=== PATIENT | male | born 1990 | race Caucasian/White ===

== ENCOUNTER 2016-06-05 15:17 | Emergency (ER) | payer OTHER ==
[~2016-06-05] VITALS: Ht 172.7 cm; Wt 64.9 kg
[2016-06-05 15:57] VITALS: BP 131/74
--- NOTE | 2016-06-05 16:00 | Emergency Room Report ---
History of Present Illness General Chief Complaint: Medication Refill Source: Patient Present Illness HPI 26-year-old male presents emergency department requesting refill of his medications. Patient states that [place] from [place] and is considering seeing here longer than he anticipated originally. 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 States he has had these conditions since childhood and takes medications daily. The note from his primary doctor indicates dosages of the medications and how often he takes them. Patient denies symptoms at this time denies MS, denies confusion denies abdominal pain denies extremity edema. he states that he wants to stay in the [place] for several more months and will need primary care doctor. Denies CP, Palpitations, LOC, AMS, dizziness, Changes in Vision, Sensation, paresthesias, or a sudden severe headache. Allergies: Coded Allergies: No Known Allergies (Unverified , 06/05/16) Patient History Past Medical History: see triage record Past Surgical History: none Pertinent Family History: none Reviewed Nursing Documentation: PMH: Agreed, PSxH: Agreed Nursing Documentation-PMH Hx Cardiac Problems: No Hx Hypertension: Yes Review of Systems All Other Systems: negative except mentioned in HPI Physical Exam Vital Signs Date Time Temp Pulse Resp B/P Pulse Ox O2 Delivery O2 Flow Rate FiO2 06/05/16 15:31 98.1 83 14 131/74 98 Room Air Sp02 EP Interpretation: reviewed, normal General Appearance: no apparent distress, alert, GCS 15, non-toxic Head: normocephalic, atraumatic Eyes: bilateral eye PERRL, bilateral eye normal inspection ENT: hearing grossly normal, normal pharynx, no angioedema, normal voice Neck: full range of motion, supple/symm/no masses Respiratory: chest non-tender, lungs clear, normal breath sounds, speaking full sentences Cardiovascular #1: regular rate, rhythm, no edema Gastrointestinal: non tender, soft, no guarding, no rebound Rectal: deferred Genitourinary: normal inspection, no CVA tenderness Musculoskeletal: back normal, gait/station normal, normal range of motion, non- tender Neurologic: alert, oriented x3, responsive, motor strength/tone normal, sensory intact, speech normal Psychiatric: judgement/insight normal, memory normal, mood/affect normal, no suicidal/homicidal ideation Skin: normal color, no rash, warm/dry, well hydrated Lymphatic: no adenopathy Medical Decision Making PA Attestation Dr. Pathak is my supervising Physician whom patient management has been discussed with. 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 presents to the ED c/o running out of his medications. Patient presents with medical records showing history of minimal change disease since 1992, Glomerulosclerosis since 2000, and nephrotic syndrome which is corticosteroid dependent since infancy. he denies symptoms at this time. Ddx considered but are not limited to: drug seeking, OD, renal failure, chronic renal disease. Vital signs: are WNL, pt. is afebrile H&PE are most consistent with need for medication refill. ORDERS: none required at this time, the diagnosis is clinical ED INTERVENTIONS: None required at this time. Pt. given refills for: Mycophenolate mofetil 1 gm PO q12 hrs Prednisolone 5mf PO QD Perindopril (Coversyl) 10mg PO QD Simvistatin 10mg PO QD One Alpha ( Alfacalcidol) 0.25mcg PO QD Ranitidine 150mg PO QD Patient is provided with referral for senior publications specialist. DISCHARGE: At this time pt. is stable for d/c to home. Will provide printed patient care instructions, and any necessary prescriptions. Care plan and follow up instructions have been discussed with the patient prior to discharge. Last Vital Signs Date Time Temp Pulse Resp B/P Pulse Ox O2 Delivery O2 Flow Rate FiO2 06/05/16 15:31 98.1 83 14 131/74 98 Room Air Disposition: HOME, SELF-CARE Condition: Stable Scripts Calcitriol (Calcitriol) 0.25 Mcg Capsule 0.25 MCG ORAL DAILY for 30 Days, #30 CAP Prov: Varsha White P.A. 06/05/16 Ranitidine Hcl* (ZANTAC*) 150 Mg Tablet 150 MG ORAL DAILY for 30 Days, #30 TAB Prov: Varsha White P.A. 06/05/16 Simvastatin (ZOCOR) 10 Mg Tablet 10 MG ORAL BEDTIME for 30 Days, #30 TAB Prov: Varsha White P.A. 06/05/16 Perindopril Erbumine (ACEON) 8 Mg Tablet 8 MG ORAL DAILY for 30 Days, #30 TAB Prov: Varsha White P.A. 06/05/16 Prednisolone (MILLIPRED) 5 Mg Tablet 5 MG PO DAILY for 30 Days, #30 TAB Prov: Varsha White 06/05/16 Mycophenolate Mofetil (CELLCEPT) 500 Mg Tablet 1000 MG ORAL EVERY 12 HOURS for 30 Days, #60 TAB Prov: Varsha White 06/05/16 Patient Instructions: Medicine Refill at the Emergency Department Additional Instructions: Take medications as directed. Follow up with PCP in 3-5 days Return sooner to ED if new symptoms occur, or current symptoms become worse. - Please note that this Emergency Department Report was dictated using [employer] technology software, occasionally this can lead to erroneous entry secondary to interpretation by the dictation equipment. Varsha White Jun 05, 2016 16:00
[2016-06-05] MEDS ORDERED: ACEON8 MG ORAL (16:17)
[2016-06-05] MEDS ORDERED: CELLCEPT500 MG ORAL (16:17)
[2016-06-05] MEDS ORDERED: ROCALTROL0.5 MCG ORAL (16:17)
[2016-06-05] MEDS ORDERED: SIMVASTATIN10 MG ORAL (16:17)
[2016-06-05] MEDS ORDERED: RANITIDINE HCL150 MG ORAL (16:17)
[2016-06-05] MEDS ORDERED: MILLIPRED5 MG PO (16:17)
[2016-06-05 16:31] VITALS: BP 131/74
== END 2016-06-05 16:31 | disposition home or self-care (01) ==
LOC: EMR 15:45
DX: N26.9 Renal sclerosis, unspecified (principal); Z76.0 Encounter for issue of repeat prescription; I10 Essential (primary) hypertension
CPT/HCPCS: 99284

== ENCOUNTER 2016-11-18 16:28 | Emergency (ER) | payer SELFPAY ==
[~2016-11-18] VITALS: Ht 167.6 cm; Wt 61.7 kg
[~2016-11-18 16:28] MED LIST: ACEON8 MG ORAL; CELLCEPT500 MG ORAL; MILLIPRED5 MG PO; RANITIDINE HCL150 MG ORAL; ROCALTROL0.5 MCG ORAL; SIMVASTATIN10 MG ORAL
[2016-11-18 16:37] VITALS: BP 123/79
[2016-11-18] MEDS ORDERED: CELLCEPT250 MG ORAL (16:43)
[2016-11-18] MEDS ORDERED: PERINDOPRIL ERBU8 MG PO (16:43)
[2016-11-18] MEDS ORDERED: MILLIPRED5 MG PO (17:09)
[2016-11-18 17:17] VITALS: BP 123/79
--- NOTE | 2016-11-19 00:10 | Emergency Room Report ---
History of Present Illness General Chief Complaint: General Complaint Source: Patient Present Illness HPI The patient is a 26-year-old male from [facility] presenting for medication refill. There is a slight language barrier. Patient states he has chronic kidney condition for which she takes daily prednisone. He has shown prescription which is for 5 mg daily. He states he ran out 3 days prior and has been unable to obtain primary doctor here. He denies any pain at this time. He denies other symptoms including nausea, vomiting, fever, chills, back pain, abdominal pain, dysuria, hematuria Allergies: Coded Allergies: No Known Allergies (Unverified , 06/05/16) Patient History Past Medical History: see triage record Pertinent Family History: none Reviewed Nursing Documentation: PMH: Agreed, PSxH: Agreed Nursing Documentation-PMH Past Medical History: No Stated History Hx Cardiac Problems: No Hx Hypertension: Yes Review of Systems All Other Systems: negative except mentioned in HPI Physical Exam Vital Signs Date Time Temp Pulse Resp B/P (MAP) Pulse Ox O2 Delivery O2 Flow Rate FiO2 11/18/16 16:37 98.2 70 17 123/79 99 Room Air Sp02 EP Interpretation: reviewed, normal General Appearance: no apparent distress, alert, GCS 15, non-toxic Head: normocephalic, atraumatic Eyes: bilateral eye normal inspection, bilateral eye PERRL ENT: hearing grossly normal, normal pharynx, no angioedema, normal voice Respiratory: chest non-tender, lungs clear, normal breath sounds, speaking full sentences Cardiovascular #1: regular rate, rhythm, no edema Gastrointestinal: normal bowel sounds, non tender, soft, non-distended, no guarding, no rebound Rectal: deferred Genitourinary: normal inspection, no CVA tenderness Musculoskeletal: back normal, gait/station normal, normal range of motion, non- tender Neurologic: alert, oriented x3, responsive, motor strength/tone normal, sensory intact, speech normal Psychiatric: judgement/insight normal, memory normal, mood/affect normal, no suicidal/homicidal ideation Skin: normal color, no rash, warm/dry, well hydrated Medical Decision Making PA Attestation Dr. Morse is my supervising physician. Patient management was discussed with my supervising physician Diagnostic Impression: Primary Impression: Medication refill ER Course The patient is a 26-year-old male presenting for medication refill The patient has shown prescription of prednisolone 5 mg daily He is given a one-month prescription but he was told he needs to find a primary care doctor as we are unable to provide chronic management of conditions. He understands. ER precautions are given Last Vital Signs Date Time Temp Pulse Resp B/P (MAP) Pulse Ox O2 Delivery O2 Flow Rate FiO2 11/18/16 17:17 98.2 17 123/79 99 Room Air 11/18/16 16:37 70 Status: improved Disposition: HOME, SELF-CARE Condition: Improved Scripts Prednisolone (MILLIPRED) 5 Mg Tablet 5 MG PO DAILY, #30 TAB Prov: THOMAS RAMIREZ 11/18/16 Referrals: NOT CHOSEN [facility]/,REFERRING (PCP) Patient Instructions: Medicine Refill at the Emergency Department Additional Instructions: I discussed my findings with the patient. All questions and concerns have been answered. Treatment and medication compliance have been addressed. I advised the patient that they need to follow up with PMD in 3-5 days. Return to ED if symptoms worsen, new symptoms arise, or if needed for any reason. Patient verbalized understanding of discharge instructions. THOMAS RAMIREZ Nov 19, 2016 00:10
== END 2016-11-18 17:38 | disposition home or self-care (01) ==
LOC: EMR 17:05
DX: Z76.0 Encounter for issue of repeat prescription (principal); I10 Essential (primary) hypertension; Z79.52 Long term (current) use of systemic steroids
CPT/HCPCS: 99282